=== PATIENT | male | born 1955 | race Caucasian/White ===

== ENCOUNTER 2018-08-15 16:18 | Emergency (ER) | payer OTHER ==
[~2018-08-15] VITALS: Ht 177.8 cm; Wt 68.0 kg
[2018-08-15] MEDS ORDERED: ALEVE220 MG PO (16:27)
[2018-08-15 17:24] VITALS: BP 132/72
== END 2018-08-15 17:25 | disposition home or self-care (01) ==
LOC: M.ERS 16:18
DX: S63.501A Unspecified sprain of right wrist, initial encounter (principal); Z88.8 Allergy status to other drugs, medicaments and biological substances; W22.8XXA Striking against or struck by other objects, initial encounter; Y93.89 Activity, other specified; Y92.89 Other specified places as the place of occurrence of the external cause; Y99.8 Other external cause status